=== PATIENT | male | born 1990 | race Caucasian/White ===

== ENCOUNTER 2024-06-25 11:38 | Emergency (ER) | payer OTHER ==
[~2024-06-25] VITALS: Ht 175.3 cm; Wt 124.0 kg
[2024-06-25 11:39] VITALS: TEMP 98.1
[2024-06-25] MEDS ORDERED: IBUP200T46 PO (11:49)
[2024-06-25 12:39] LABS: HEMATOCRIT 47.9 % (42.0-52.0); HEMOGLOBIN 17.7 g/dl (13.5-17.5); MEAN CORPUSCULAR VOLUME 89.4 fl (80.0-96.0); PLATELET COUNT, AUTOMATED 175 10^3/uL (150-450); RED BLOOD COUNT 5.36 10^6/uL (4.30-6.10); WHITE BLOOD COUNT 8.4 10^3/uL (4.0-10.0)
[2024-06-25 12:47] LABS: CPK CREATINE PHOSPHOKINASE 142 U/L (46-171)
[2024-06-25] MEDS: NS 1,000 ML IV ONE (14:19)
[2024-06-25 14:56] LABS: CK-MB VALUE MASS 1.7 NG/ML (<3.6); CPK CREATINE PHOSPHOKINASE 128 U/L (46-171); MB/CK RELATIVE INDEX 1.32 (< OR =4)
[2024-06-25 15:20] VITALS: BP 137/80; O2SAT 99
== END 2024-06-25 15:20 | disposition home or self-care (01) ==
LOC: M ED 11:38
DX: R07.89 Other chest pain (principal); F17.290 Nicotine dependence, other tobacco product, uncomplicated; F10.10 Alcohol abuse, uncomplicated; Z79.1 Long term (current) use of non-steroidal anti-inflammatories (NSAID)